=== PATIENT | female | born 1955 | race Caucasian/White ===

== ENCOUNTER 2017-10-15 10:14 | Emergency (ER) | payer BC, OTHER ==
--- NOTE | 2017-10-15 10:37 | EDM.PDOC ---
ED HPI GENERAL MEDICAL PROBLEM - General Chief Complaint: Lower Extremity Injury/Pain Stated Complaint: RIGHT ANKLE PAIN FROM FALL Time Seen by Provider: 10/15/17 10:35 Source of Information: Reports: Patient History Limitations: Reports: No Limitations - History of Present Illness INITIAL COMMENTS - FREE TEXT/NARRATIVE: HISTORY AND PHYSICAL: 62-year-old female presenting with right ankle pain History of Present Illness: []About 9:00 this morning patient was going down her 5 steps and slipped when she got to the deck with a inversion to her right ankle. Review of Systems: As per history of present illness and below otherwise all systems reviewed and negative. Past medical history: As per history of present illness and as reviewed below otherwise noncontributory. Surgical history: As per history of present illness and as reviewed below otherwise noncontributory. Social history: No reported history of drug or alcohol abuse. Family history: As per history of present illness and as reviewed below otherwise noncontributory. Physical exam: Alert and oriented female answering questions appropriately in full sentences while eating a power bar. She is not short of breath. HEENT: Atraumatic, normocehpalic, pupils reactive, negative for conjunctival pallor or scleral icterus, mucous membranes moist, throat clear, neck supple, nontender, trachea midline. Lungs: Clear to auscultation, breath sounds equal bilaterally, chest non tender. Heart: S1S2, regular, negative for clicks, rubs, or JVD. Abdomen: Soft, nondistended, nontender. Negative for masses or hepatossplenmegaly. Negative for costovertebral tenderness. Pelvis: Stable nontender. Genitourinary: Deferred. Rectal: Deferred Extremities: Right ankle with 2-3+ edema to the lateral malleolus there is a minor abrasion to the medial ankle. She does have good inversion and eversion wiggling her toes well good flexion and extension. Pulse is easily palpable Refill less than 2 seconds to her toes., negative for cords or calf pain. Neurovascular unremarkable. Neuro: Awake, alert, oriented. Cranial nerves II through XII unremarkable. Cerebellum unremarkable. Motor and sensory unremarkable throughout. Exam nonfocal. X-ray shows a distal fibular fracture displaced minimally. Good spacing is noted at the tibia. Diagnostics: [X-ray right ankle] Therapeutics: []Cam Walker boot Crutches Impression: [A right fibula fracture] Plan: [Discharged to home Nonweightbearing for the next 48 hours Then may add weight gradually as tolerated Elevate and ice your ankle 20 minutes on 20 minutes off Refer to orthopedics for follow-up care [facility] [address], [address] [place] [address] Pain medication prescription to be taken minimally. Diclofenac twice a day Patient does have Tylenol with Codeine at home that she can take as well If unable to get into the orthopedic clinic may follow-up with your primary care provider in one week. Definitive disposition and diagnosis as appropriate pending reevaluation and review of above. Onset: Today, Sudden Duration: Hour(s):, Getting Worse Location: Reports: Lower Extremity, Right Right Ankle Pain Score (Numeric/FACES): 1 - Related Data Allergies Allergy/AdvReac Type Severity Reaction Status Date / Time morphine Allergy Nausea Verified 10/15/17 10:29 Home Meds: Home Meds Venlafaxine [Effexor] 75 mg PO DAILY 09/16/14 [History] Acetaminophen with Codeine [Tylenol with Codeine #3 Tablet] 1 tab PO ASDIRECTED PRN 05/28/15 [History] Lansoprazole [Prevacid] 15 mg PO DAILY 05/28/15 [History] Multivitamin [Multi-Vitamin Daily] 1 each PO DAILY 06/25/15 [History] traZODone 50 mg PO BEDTIME 10/15/17 [History] Past Medical History HEENT History: Reports: None Other HEENT History: wears reading glasses Cardiovascular History: Reports: High Cholesterol Respiratory History: Reports: None Gastrointestinal History: Reports: GERD Other Gastrointestinal History: Colon CA last year with transverse colon resection (Dr Mijares) Genitourinary History: Reports: None 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 Other OB/BYN History: hx: Uterine Cancer last year (s/p hysterectomy and BSO) Musculoskeletal History: Reports: Arthritis, Fracture Other Musculoskeletal History: hx of fx humerus, dislocated elbow Neurological History: Reports: None Psychiatric History: Reports: Anxiety, Depression Endocrine/Metabolic History: Reports: Obesity/BMI 30+ Hematologic History: Reports: None Immunologic History: Reports: None Other Immunologic History: hx: MRSA from leg lesion (estimates several yrs ago) , has not been tested to have cleared from Medical history Oncologic (Cancer) History: Reports: Colon, Uterine Other Oncologic History: hx of Uterine Cancer, presently diagnosed with colon mass Dermatologic History: Reports: Other (See Below) Other Dermatologic History: rash from tape and bandaids, fabric tape is OK - Infectious Disease History Infectious Disease History: Reports: Chicken Pox, MRSA - Past Surgical History Female Surgical History: Reports: Hysterectomy, Salpingo-Oophorectomy Oncologic Surgical History: Reports: Other (See Below) Social & Family History - Family History Family Medical History: Noncontributory - Tobacco Use Smoking Status *Q: Former Smoker Years of Tobacco use: 10 Packs/Tins Daily: 1 Used Tobacco, but Quit: Yes Month Tobacco Last Used: May Second Hand Smoke Exposure: No - Alcohol Use Days Per Week of Alcohol Use: 0 - Recreational Drug Use Recreational Drug Use: No Drug Use in Last 12 Months: No Review of Systems - Review of Systems Review Of Systems: ROS reveals no pertinent complaints other than HPI. ED EXAM, GENERAL - Physical Exam Exam: See Below Course - Vital Signs Last Recorded V/S: Last Vital Signs Temp 36.7 C 10/15/17 10:25 Pulse 89 10/15/17 10:25 Resp 20 10/15/17 10:25 BP 127/89 10/15/17 10:40 Pulse Ox 99 10/15/17 10:25 - Orders/Labs/Meds Orders: Active Orders 24 hr Category Date Time Status Cooling Warming Measures [RC] ASDIRECTED Care 10/15/17 10:56 Active Splinting [RC] ASDIRECTED Care 10/15/17 11:15 Ordered Ankle Min 3V Rt [CR] Stat Exams 10/15/17 10:35 Taken DME for Discharge [COMM] Stat Oth 10/15/17 11:15 Ordered Ice Bag [Ice Therapy] [OM.PC] Stat Oth 10/15/17 10:56 Ordered Departure - Departure Time of Disposition: 11:25 Disposition: Home, Self-Care 01 Condition: Good Clinical Impression: Closed right fibular fracture Qualifiers: Encounter type: initial encounter Fibula location: distal Fracture morphology: unspecified fracture morphology Qualified Code(s): S82.831A - Other fracture of upper and lower end of right fibula, initial encounter for closed fracture - Discharge Information Instructions: Crutch Use, Adult, [id number], Tibial and Fibular Fracture, Pain Medicine Instructions, [id number] Referrals: Magali Dozier NP [Primary Care Provider] - Jerri Chiang MD [Physician] - Forms: ED Department Discharge Additional Instructions: The following information is given to patients seen in the emergency department who are being discharged to home. This information is to outline your options for follow-up care. We provide all patients seen in our emergency department with a follow-up referral. The need for follow-up, as well as the timing and circumstances, are variable depending upon the specifics of your emergency department visit. If you don't have a primary care physician on staff, we will provide you with a referral. We always advise you to contact your personal physician following an emergency department visit to inform them of the circumstance of the visit and for follow-up with them and/or the need for any referrals to a consulting specialist. The emergency department will also refer you to a specialist when appropriate. This referral assures that you have the opportunity for followup care with a specialist. All of these measure are taken in an effort to provide you with optimal care, which includes your followup. Under all circumstances we always encourage you to contact your private physician who remains a resource for coordinating your care. When calling for followup care, please make the office aware that this follow-up is from your recent emergency room visit. If for any reason you are refused follow-up, please contact the [facility] emergency department at and asked to speak to the emergency department charge nurse. Referral to Dr. Jerri Chiang [facility] Building [address] [place] [address], [address] [place] [address] Elevate and ice your ankle on 20 minutes off 20 minutes Crutches for nonweightbearing the next 48 hours Slowly introduce weight Prescription written for diclofenac 75 mg twice daily 10 days You may use your Tylenol with Codeine with this - My Orders Last 24 Hours: My Active Orders 10/15/17 10:35 Ankle Min 3V Rt [CR] Stat 10/15/17 10:56 Cooling Warming Measures [RC] ASDIRECTED Ice Bag [Ice Therapy] [OM.PC] Stat 10/15/17 11:15 Splinting [RC] ASDIRECTED DME for Discharge [COMM] Stat - Assessment/Plan Last 24 Hours: My Active Orders 10/15/17 10:35 Ankle Min 3V Rt [CR] Stat 10/15/17 10:56 Cooling Warming Measures [RC] ASDIRECTED Ice Bag [Ice Therapy] [OM.PC] Stat 10/15/17 11:15 Splinting [RC] ASDIRECTED DME for Discharge [COMM] Stat
[2017-10-15 11:36] VITALS: BP 132/78
--- NOTE | 2017-10-15 15:05 | CR ---
EXAM DATE: 10/15/17 PATIENT'S AGE: 62 Patient: SHAMEKA SELBY Facility: [place], [place] Site . Site : 1955 Study: XRay Extremity Right [id number] right-10/15/2017 10:57:27 AM Ordering Physician: Doctor Begum Final Report: INDICATION: Right ankle pain post injury. TECHNIQUE: Three views of the right ankle. COMPARISON: None. FINDINGS: Acute nondisplaced fracture of the distal fibula. Otherwise unremarkable except for associated soft tissue swelling. IMPRESSION: Acute nondisplaced distal fibular fracture. Dictated by Maury Brand MD @ Oct 15 2017 11:04AM (Electronic Signature) Report Signed by Proxy. GODWIN
== END 2017-10-15 11:32 | disposition home or self-care (01) ==
LOC: MW.ED 10:14
DX: S82.831A Other fracture of upper and lower end of right fibula, initial encounter for closed fracture (principal); E78.00 Pure hypercholesterolemia, unspecified; K21.9 Gastro-esophageal reflux disease without esophagitis; F32.9 Major depressive disorder, single episode, unspecified; Z87.891 Personal history of nicotine dependence; Z79.899 Other long term (current) drug therapy; Z88.5 Allergy status to narcotic agent; X50.9XXA Other and unspecified overexertion or strenuous movements or postures, initial encounter
CPT/HCPCS: 73610-26-RT; 73610-RT; 99283

== ENCOUNTER 2018-01-31 15:07 | Emergency (ER) | payer OTHER ==
--- NOTE | 2018-01-31 15:14 | EDM.PDOC ---
ED HPI GENERAL MEDICAL PROBLEM - General Chief Complaint: Lower Extremity Injury/Pain Stated Complaint: RIGHT FOOT PAIN Time Seen by Provider: 01/31/18 15:12 Source of Information: Reports: Patient History Limitations: Reports: No Limitations - History of Present Illness INITIAL COMMENTS - FREE TEXT/NARRATIVE: History of present illness: []Patient slipped in the shower approximately 1 hour ago and felt pain in her right foot. She is unable to walk or bear any weight on her right foot however she drove herself here. She denies any loss of consciousness or any other injuries. She states she has osteopenia. Review of systems: As per history of present illness and below otherwise all systems reviewed and negative. Past medical history: As per history of present illness and as reviewed below otherwise noncontributory. Surgical history: As per history of present illness and as reviewed below otherwise noncontributory. Social history: No reported history of drug or alcohol abuse. Family history: As per history of present illness and as reviewed below otherwise noncontributory. Physical exam: General: Well developed, well nourished in NAD HEENT: Atraumatic, normocephalic, pupils reactive, negative for conjunctival pallor or scleral icterus, mucous membranes moist, throat clear, neck supple, nontender, trachea midline. Lungs: Clear to auscultation, breath sounds equal bilaterally, chest nontender. Heart: S1S2, regular, negative for clicks, rubs, or JVD. Abdomen: Soft, nondistended, nontender. Negative for masses or hepatosplenomegaly. Negative for costovertebral tenderness. Pelvis: Stable nontender. Genitourinary: Deferred. Rectal: Deferred. Extremities: Right foot with no obvious deformities is tender to palpation over the fifth metatarsal surface. Distal capillary refill is brisk dorsalis pedis is palpable, negative for cords or calf pain. Neurovascular unremarkable. Neuro: Awake, alert, oriented. Cranial nerves II through XII unremarkable. Cerebellum unremarkable. Motor and sensory unremarkable throughout. Exam nonfocal. Diagnostics: []X-ray right foot negative for fracture Therapeutics: []Ibuprofen Impression: [] Plan: []Ice, elevate, ibuprofen for pain follow-up with primary care. Definitive disposition and diagnosis as appropriate pending reevaluation and review of above. Right Ankle Pain Score (Numeric/FACES): 9 - Related Data Allergies Allergy/AdvReac Type Severity Reaction Status Date / Time morphine Allergy Nausea Verified 01/31/18 15:26 Home Meds: Home Meds Venlafaxine [Effexor] 150 mg PO DAILY 09/16/14 [History] Multivitamin [Multi-Vitamin Daily] 1 each PO DAILY 06/25/15 [History] traZODone 50 mg PO BEDTIME 10/15/17 [History] Past Medical History HEENT History: Reports: None Other HEENT History: wears reading glasses Cardiovascular History: Reports: High Cholesterol Respiratory History: Reports: None Gastrointestinal History: Reports: GERD Other Gastrointestinal History: Colon CA last year with transverse colon resection (Dr Mijares) Genitourinary History: Reports: None 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 Other OB/BYN History: hx: Uterine Cancer last year (s/p hysterectomy and BSO) Musculoskeletal History: Reports: Arthritis, Fracture Other Musculoskeletal History: hx of fx humerus, dislocated elbow Neurological History: Reports: None Psychiatric History: Reports: Anxiety, Depression Endocrine/Metabolic History: Reports: Obesity/BMI 30+ Hematologic History: Reports: None Immunologic History: Reports: None Other Immunologic History: hx: MRSA from leg lesion (estimates several yrs ago) , has not been tested to have cleared from Medical history Oncologic (Cancer) History: Reports: Colon, Uterine Other Oncologic History: hx of Uterine Cancer, presently diagnosed with colon mass Dermatologic History: Reports: Other (See Below) Other Dermatologic History: rash from tape and bandaids, fabric tape is OK - Infectious Disease History Infectious Disease History: Reports: Chicken Pox, MRSA - Past Surgical History Female Surgical History: Reports: Hysterectomy, Salpingo-Oophorectomy Oncologic Surgical History: Reports: Other (See Below) Social & Family History - Family History Family Medical History: Noncontributory - Caffeine Use Caffeine Use: Reports: Coffee Review of Systems - Review of Systems Review Of Systems: See Below (See history of present illness) ED EXAM, GENERAL - Physical Exam Exam: See Below (See history of present illness) Course - Vital Signs Last Recorded V/S: Last Vital Signs Temp 98.1 F 01/31/18 15:27 Pulse 90 01/31/18 15:27 Resp 18 01/31/18 15:27 BP 144/97 H 01/31/18 15:27 Pulse Ox 97 01/31/18 15:27 - Orders/Labs/Meds Meds: Medications Discontinued Medications Generic Name Dose Route Start Last Admin Trade Name Jadiel PRN Reason Stop Dose Admin Ibuprofen 800 mg 01/31/18 15:30 01/31/18 15:37 Motrin PO 01/31/18 15:31 800 mg ONETIME ONE Administration Departure - Departure Time of Disposition: 16:09 Disposition: Home, Self-Care 01 Condition: Good Clinical Impression: Right foot sprain Qualifiers: Encounter type: initial encounter Qualified Code(s): S93.601A - Unspecified sprain of right foot, initial encounter - Discharge Information Referrals: Magali Dozier NP [Primary Care Provider] - Forms: ED Department Discharge Additional Instructions: The following information is given to patients seen in the emergency department who are being discharged to home. This information is to outline your options for follow-up care. We provide all patients seen in our emergency department with a follow-up referral. The need for follow-up, as well as the timing and circumstances, are variable depending upon the specifics of your emergency department visit. If you don't have a primary care physician on staff, we will provide you with a referral. We always advise you to contact your personal physician following an emergency department visit to inform them of the circumstance of the visit and for follow-up with them and/or the need for any referrals to a consulting specialist. The emergency department will also refer you to a specialist when appropriate. This referral assures that you have the opportunity for follow-up care with a specialist. All of these measure are taken in an effort to provide you with optimal care, which includes your follow-up. Under all circumstances we always encourage you to contact your private physician who remains a resource for coordinating your care. When calling for follow-up care, please make the office aware that this follow-up is from your recent emergency room visit. If for any reason you are refused follow-up, please contact the [facility] Emergency Department at and asked to speak to the emergency department charge nurse. Ice, elevate, ibuprofen or Tylenol for pain follow-up with primary care as needed.
[2018-01-31 15:30] VITALS: BP 144/97
[2018-01-31] MEDS ORDERED: Ibuprofen 800 MG Tab PO ONE (15:30)
--- NOTE | 2018-01-31 15:55 | CR ---
EXAMINATION: Right foot HISTORY: Pain COMPARISON: None TECHNIQUE: 2 views FINDINGS/IMPRESSION: There is no acute osseous abnormality, dislocation, or fracture. Mild osteoarthr itic changes noted at the first MTP joint and a small plantar enthesophyte is noted. Bone mineralizat ion and joint spaces are otherwise preserved.
== END 2018-01-31 16:19 | disposition home or self-care (01) ==
LOC: MW.ED 15:07
DX: S93.601A Unspecified sprain of right foot, initial encounter (principal); Z79.899 Other long term (current) drug therapy; W01.0XXA Fall on same level from slipping, tripping and stumbling without subsequent striking against object, initial encounter
CPT/HCPCS: 73620; 99283; A9270